=== PATIENT | female | born 1970 | race Caucasian/White ===

== ENCOUNTER 2020-12-18 22:46 | Inpatient (IN) | payer MEDICARE ==
[2020-12-19] MEDS ORDERED: Acetaminophen 650 MG Suppository PR PRN (01:04)
[2020-12-19] MEDS ORDERED: Ondansetron ODT 4 MG TAB PO PRN (01:04)
[2020-12-19] MEDS ORDERED: Acetaminophen 325 MG TAB ONE (01:43)
[2020-12-19] MEDS ORDERED: Lorazepam 1 MG TAB ONE (01:43)
[2020-12-19] MEDS: Acetaminophen 325 MG TAB PO PRN ×2 (01:55→20:16)
[2020-12-19] MEDS: Lorazepam 0.5 MG TAB PO PRN (01:56)
[2020-12-19 04:58] LABS: #Basophils 0.1 thou/uL (0.0-0.2); #Lymphocytes 1.3 thou/uL (1.20-3.40); #Monocytes 0.6 thou/uL (0.11-0.59); #Neutrophils 4.8 thou/uL (1.40-6.50); %Basophils 1.3 % (0.0-1.0); %Eosinophils 0.2 % (0.0-10.0); %Lymphocytes 18.7 % (21.0-51.0); %Monocytes 8.7 % (0.0-10.0); %Neutrophils 71.1 % (42.0-75.0); Hemoglobin 14.5 g/dL (12.0-16.0); Mean Corpuscular HGB CONC 32.5 g/dL (32.0-36.0); Mean Corpuscular Volume 92.3 fL (78.0-98.0); Mean Platelet Volume 7.9 fL (7.4-10.4); Platelet Count 186 thou/uL (130-400); RBC Distribution Width 12.5 % (11.5-14.5); Red Blood Cell (RBC) Count 4.85 mill/uL (4.20-5.40); White Blood Cell (WBC) Count 6.7 thou/uL (4.8-10.8)
[2020-12-19 05:21] LABS: Anion Gap 14 mmol/L (10-20); BUN (Urea Nitrogen) 6 mg/dL (7.0-18.7); CRP (Inflammatory) 6.54 mg/dL (= or < 0.5); Calc. Creatinine Clearance 128 mL/min (70-130); Calcium 8.3 mg/dL (7.8-10.44); Carbon Dioxide 18 mmol/L (22-29); Chloride 106 mmol/L (98-107); Glucose 97 mg/dL (70-105); Sodium 135 mmol/L (136-145)
[2020-12-19 05:23] LABS: Magnesium 1.9 mg/dL (1.6-2.6)
[2020-12-19 05:26] LABS: Potassium 2.7 mmol/L (3.5-5.1)
[2020-12-19] MEDS: Potassium Chloride 20 MEQ TAB PO SCH ×2 (05:44→11:22)
[2020-12-19] MEDS ORDERED: Potassium Chloride 20 MEQ TAB ONE ×2 (05:45→09:43)
[2020-12-19] MEDS ORDERED: Sodium Chloride 0.9% 1,000 ML IV SCH (05:45)
[2020-12-19] MEDS: Ondansetron PF 4 MG/2 ML Vial IVP PRN ×2 (05:52→10:47)
[2020-12-19] MEDS ORDERED: Ondansetron PF 4 MG/2 ML Vial ONE ×2 (05:52→10:36)
[2020-12-19] MEDS ORDERED: Iopamidol-370 76% 500 ML 1 ML ONE (09:27)
[2020-12-19] MEDS ORDERED: Dexamethasone 10 MG/ML VIAL ONE (09:43)
[2020-12-19] MEDS ORDERED: Enoxaparin Sodium 40 MG/0.4 ML SYRINGE ONE (09:43)
[2020-12-19] MEDS: Enoxaparin Sodium 40 MG/0.4 ML SYRINGE SC SCH ×2 (10:04→20:17)
[2020-12-19] MEDS: Dexamethasone 4 mg/ml Vial SLOW IVP SCH (10:04)
[2020-12-19] MEDS ORDERED: Thiamine 100 MG TAB ONE (10:30)
[2020-12-19] MEDS ORDERED: Zinc Sulfate 220 MG CAP ONE (10:36)
[2020-12-19] MEDS ORDERED: Ascorbic Acid 500 mg Chewable Tablet ONE (10:36)
[2020-12-19 11:05] LABS: Anion Gap 13 mmol/L (10-20); BUN (Urea Nitrogen) 7 mg/dL (7.0-18.7); Calc. Creatinine Clearance 134 mL/min (70-130); Carbon Dioxide 21 mmol/L (22-29); Chloride 106 mmol/L (98-107); Sodium 137 mmol/L (136-145)
[2020-12-19 11:06] LABS: Calcium 8.9 mg/dL (7.8-10.44); Glucose 115 mg/dL (70-105)
[2020-12-19] MEDS: Cholecalciferol (Vitamin D3) 400 UNITS TAB PO SCH (11:21)
[2020-12-19] MEDS: Ascorbic Acid 500 mg Chewable Tablet PO SCH (11:21)
[2020-12-19] MEDS: guaiFENesin ER 600 MG TAB PO SCH ×2 (11:22→20:15)
[2020-12-19] MEDS: Zinc Sulfate 220 MG CAP PO SCH (11:22)
[2020-12-19] MEDS: Thiamine 100 MG TAB PO SCH (11:22)
[2020-12-19 15:53] VITALS: BMI 37.9
[2020-12-20] MEDS ORDERED: Sodium Chloride 0.65% Nasal 44 ML BOT EA NARE PRN (00:11)
[2020-12-20] MEDS: HYDROcodone/Acetaminophen 5/325 mg Tablet PO PRN ×2 (00:44→08:05)
[2020-12-20] MEDS: Benzonatate 100 MG CAP PO PRN (00:45)
[2020-12-20] MEDS ORDERED: Albuterol 200 PUFF (6.7GM INHALER) INH PRN (01:15)
[2020-12-20] MEDS: Enoxaparin Sodium 40 MG/0.4 ML SYRINGE SC SCH ×2 (08:03→22:27)
[2020-12-20] MEDS: Zinc Sulfate 220 MG CAP PO SCH (08:03)
[2020-12-20] MEDS: Ascorbic Acid 500 mg Chewable Tablet PO SCH (08:03)
[2020-12-20] MEDS: Thiamine 100 MG TAB PO SCH (08:03)
[2020-12-20] MEDS: Dexamethasone 4 mg/ml Vial SLOW IVP SCH (08:04)
[2020-12-20] MEDS: guaiFENesin ER 600 MG TAB PO SCH ×2 (08:04→20:07)
[2020-12-20] MEDS: Cholecalciferol (Vitamin D3) 400 UNITS TAB PO SCH (08:04)
[2020-12-20] MEDS: Lorazepam 0.5 MG TAB PO PRN (08:14)
[2020-12-20] MEDS ORDERED: Potassium Chloride 20 MEQ TAB PO SCH (10:00)
[2020-12-20] MEDS ORDERED: SUMAtriptan Succinate 50 MG TAB PO SCH (11:00)
[2020-12-20] MEDS ORDERED: Propranolol 10 MG TAB PO SCH (11:00)
[2020-12-20] MEDS ORDERED: Topiramate 100 MG TAB PO SCH (11:00)
[2020-12-20] MEDS ORDERED: Venlafaxine HCl XR 150 MG CAP PO SCH (11:00)
[2020-12-20] MEDS ORDERED: Mirtazapine 15 MG TAB PO SCH (11:00)
[2020-12-20] MEDS: traZODone HCl 50 MG TAB PO SCH (20:08)
[2020-12-20] MEDS: Topiramate 100 MG TAB PO SCH (20:08)
[2020-12-20] MEDS: Propranolol 10 MG TAB PO SCH (20:08)
[2020-12-20] MEDS: Colchicine 0.6 MG TAB PO SCH (20:08)
[2020-12-20] MEDS: SUMAtriptan Succinate 50 MG TAB PO SCH (20:09)
[2020-12-20] MEDS: Zolpidem Tartrate 5 MG TAB PO SCH ×3 (20:11→20:13)
[2020-12-21 04:41] LABS: #Lymphocytes 1.2 thou/uL (1.20-3.40); #Monocytes 0.4 thou/uL (0.11-0.59); #Neutrophils 5.1 thou/uL (1.40-6.50); %Basophils 0.5 % (0.0-1.0); %Eosinophils 0.2 % (0.0-10.0); %Lymphocytes 18.4 % (21.0-51.0); %Monocytes 5.9 % (0.0-10.0); %Neutrophils 75.1 % (42.0-75.0); Hemoglobin 12.8 g/dL (12.0-16.0); Mean Corpuscular HGB CONC 33.7 g/dL (32.0-36.0); Mean Corpuscular Hemoglobin 31.2 pg (27.0-31.0); Mean Corpuscular Volume 92.4 fL (78.0-98.0); Mean Platelet Volume 7.7 fL (7.4-10.4); Platelet Count 182 thou/uL (130-400); RBC Distribution Width 12.4 % (11.5-14.5); Red Blood Cell (RBC) Count 4.09 mill/uL (4.20-5.40); White Blood Cell (WBC) Count 6.7 thou/uL (4.8-10.8)
[2020-12-21 05:02] LABS: Anion Gap 10 mmol/L (10-20); BUN (Urea Nitrogen) 7 mg/dL (7.0-18.7); Calc. Creatinine Clearance 176 mL/min (70-130); Calcium 8.6 mg/dL (7.8-10.44); Carbon Dioxide 25 mmol/L (22-29); Chloride 101 mmol/L (98-107); Glucose 90 mg/dL (70-105); Sodium 133 mmol/L (136-145)
[2020-12-21] MEDS: HYDROcodone/Acetaminophen 5/325 mg Tablet PO PRN (05:19)
[2020-12-21 08:05] LABS: Magnesium 1.9 mg/dL (1.6-2.6)
[2020-12-21] MEDS: Ascorbic Acid 500 mg Chewable Tablet PO SCH (09:09)
[2020-12-21] MEDS: Dexamethasone 4 mg/ml Vial SLOW IVP SCH (09:10)
[2020-12-21] MEDS: Cholecalciferol (Vitamin D3) 400 UNITS TAB PO SCH (09:10)
[2020-12-21] MEDS: Colchicine 0.6 MG TAB PO SCH ×2 (09:10→21:58)
[2020-12-21] MEDS: guaiFENesin ER 600 MG TAB PO SCH ×2 (09:11→21:59)
[2020-12-21] MEDS: Enoxaparin Sodium 40 MG/0.4 ML SYRINGE SC SCH ×2 (09:11→21:59)
[2020-12-21] MEDS: Mirtazapine 15 MG TAB PO SCH (09:12)
[2020-12-21] MEDS: Propranolol 10 MG TAB PO SCH ×2 (09:13→21:59)
[2020-12-21] MEDS: Potassium Chloride 20 MEQ TAB PO SCH ×2 (09:13→17:30)
[2020-12-21] MEDS: Thiamine 100 MG TAB PO SCH (09:15)
[2020-12-21] MEDS ORDERED: Magnesium 2 GM/50 ML 2 GM in Premix Bag 1 BAG IVPB SCH (09:15)
[2020-12-21] MEDS: SUMAtriptan Succinate 50 MG TAB PO SCH ×2 (09:15→21:58)
[2020-12-21] MEDS: Topiramate 100 MG TAB PO SCH ×2 (09:16→21:59)
[2020-12-21] MEDS: Zinc Sulfate 220 MG CAP PO SCH (09:16)
[2020-12-21] MEDS: Venlafaxine HCl XR 150 MG CAP PO SCH (09:19)
[2020-12-21] MEDS: traZODone HCl 50 MG TAB PO SCH (21:57)
[2020-12-21] MEDS: Zolpidem Tartrate 5 MG TAB PO SCH (21:57)
[2020-12-21] MEDS: Benzonatate 100 MG CAP PO PRN (21:58)
[2020-12-22] MEDS: Enoxaparin Sodium 40 MG/0.4 ML SYRINGE SC SCH ×2 (08:33→19:45)
[2020-12-22] MEDS: SUMAtriptan Succinate 50 MG TAB PO SCH ×2 (08:33→19:46)
[2020-12-22] MEDS: Thiamine 100 MG TAB PO SCH (08:34)
[2020-12-22] MEDS: Topiramate 100 MG TAB PO SCH ×2 (08:34→19:46)
[2020-12-22] MEDS: Propranolol 10 MG TAB PO SCH ×2 (08:34→19:46)
[2020-12-22] MEDS: Ascorbic Acid 500 mg Chewable Tablet PO SCH (08:34)
[2020-12-22] MEDS: Mirtazapine 15 MG TAB PO SCH (08:34)
[2020-12-22] MEDS: Zinc Sulfate 220 MG CAP PO SCH (08:34)
[2020-12-22] MEDS: Cholecalciferol (Vitamin D3) 400 UNITS TAB PO SCH (08:34)
[2020-12-22] MEDS: Dexamethasone 4 mg/ml Vial SLOW IVP SCH (08:35)
[2020-12-22] MEDS: Venlafaxine HCl XR 150 MG CAP PO SCH (08:35)
[2020-12-22] MEDS: Colchicine 0.6 MG TAB PO SCH ×2 (08:35→19:46)
[2020-12-22] MEDS: guaiFENesin ER 600 MG TAB PO SCH ×2 (08:35→19:46)
[2020-12-22] MEDS ORDERED: Azithromycin 250 MG TAB PO SCH (09:15)
[2020-12-22] MEDS: cefTRIAXone\\ROCEPHIN 1 GM in Sodium Chloride 0.9% 100 ML IVPB SCH (09:53)
[2020-12-22 10:05] LABS: #Lymphocytes 1.1 thou/uL (1.20-3.40); #Monocytes 0.5 thou/uL (0.11-0.59); #Neutrophils 3.7 thou/uL (1.40-6.50); %Basophils 0.2 % (0.0-1.0); %Eosinophils 0.4 % (0.0-10.0); %Lymphocytes 21.3 % (21.0-51.0); %Monocytes 8.6 % (0.0-10.0); %Neutrophils 69.5 % (42.0-75.0); Hemoglobin 12.5 g/dL (12.0-16.0); Mean Corpuscular HGB CONC 32.8 g/dL (32.0-36.0); Mean Corpuscular Hemoglobin 31.1 pg (27.0-31.0); Mean Corpuscular Volume 94.8 fL (78.0-98.0); Mean Platelet Volume 7.9 fL (7.4-10.4); Platelet Count 266 thou/uL (130-400); RBC Distribution Width 12.4 % (11.5-14.5); Red Blood Cell (RBC) Count 4.03 mill/uL (4.20-5.40); White Blood Cell (WBC) Count 5.3 thou/uL (4.8-10.8)
[2020-12-22 10:14] LABS: Anion Gap 11 mmol/L (10-20); BUN (Urea Nitrogen) 13 mg/dL (7.0-18.7); Calc. Creatinine Clearance 156 mL/min (70-130); Calcium 8.7 mg/dL (7.8-10.44); Carbon Dioxide 27 mmol/L (22-29); Chloride 103 mmol/L (98-107); Glucose 96 mg/dL (70-105); Magnesium 2.4 mg/dL (1.6-2.6); Potassium 3.6 mmol/L (3.5-5.1); Sodium 137 mmol/L (136-145)
[2020-12-22] MEDS: Acetaminophen 325 MG TAB PO PRN (18:58)
[2020-12-22] MEDS: Zolpidem Tartrate 5 MG TAB PO SCH (19:45)
[2020-12-22] MEDS: traZODone HCl 50 MG TAB PO SCH (19:46)
[2020-12-23] MEDS: Enoxaparin Sodium 40 MG/0.4 ML SYRINGE SC SCH ×2 (07:50→22:08)
[2020-12-23] MEDS: Venlafaxine HCl XR 150 MG CAP PO SCH (07:51)
[2020-12-23] MEDS: Ascorbic Acid 500 mg Chewable Tablet PO SCH (07:51)
[2020-12-23] MEDS: guaiFENesin ER 600 MG TAB PO SCH ×2 (07:51→22:09)
[2020-12-23] MEDS: Propranolol 10 MG TAB PO SCH ×2 (07:51→22:08)
[2020-12-23] MEDS: Dexamethasone 4 mg/ml Vial SLOW IVP SCH (07:51)
[2020-12-23] MEDS: Zinc Sulfate 220 MG CAP PO SCH (07:51)
[2020-12-23] MEDS: Cholecalciferol (Vitamin D3) 400 UNITS TAB PO SCH (07:51)
[2020-12-23] MEDS: Colchicine 0.6 MG TAB PO SCH ×2 (07:52→22:16)
[2020-12-23] MEDS: Azithromycin 250 MG TAB PO SCH (07:52)
[2020-12-23] MEDS: SUMAtriptan Succinate 50 MG TAB PO SCH ×2 (07:52→22:15)
[2020-12-23] MEDS: Topiramate 100 MG TAB PO SCH ×2 (07:52→22:16)
[2020-12-23] MEDS: Mirtazapine 15 MG TAB PO SCH (07:52)
[2020-12-23] MEDS: Thiamine 100 MG TAB PO SCH (07:52)
[2020-12-23] MEDS: cefTRIAXone\\ROCEPHIN 1 GM in Sodium Chloride 0.9% 100 ML IVPB SCH (07:55)
[2020-12-23] MEDS: Benzonatate 100 MG CAP PO PRN ×2 (08:20→15:37)
[2020-12-23] MEDS: HYDROcodone/Acetaminophen 5/325 mg Tablet PO PRN (18:02)
[2020-12-23] MEDS: Zolpidem Tartrate 5 MG TAB PO SCH (22:08)
[2020-12-23] MEDS: traZODone HCl 50 MG TAB PO SCH (22:09)
[2020-12-24] MEDS: SUMAtriptan Succinate 50 MG TAB PO SCH ×2 (08:07→19:37)
[2020-12-24] MEDS: cefTRIAXone\\ROCEPHIN 1 GM in Sodium Chloride 0.9% 100 ML IVPB SCH (08:07)
[2020-12-24] MEDS: Venlafaxine HCl XR 150 MG CAP PO SCH (08:08)
[2020-12-24] MEDS: Benzonatate 100 MG CAP PO PRN ×2 (08:08→19:35)
[2020-12-24] MEDS: guaiFENesin ER 600 MG TAB PO SCH ×2 (08:08→19:36)
[2020-12-24] MEDS: Zinc Sulfate 220 MG CAP PO SCH (08:08)
[2020-12-24] MEDS: Mirtazapine 15 MG TAB PO SCH (08:08)
[2020-12-24] MEDS: Azithromycin 250 MG TAB PO SCH (08:08)
[2020-12-24] MEDS: Ascorbic Acid 500 mg Chewable Tablet PO SCH (08:08)
[2020-12-24] MEDS: Propranolol 10 MG TAB PO SCH ×2 (08:08→19:35)
[2020-12-24] MEDS: Thiamine 100 MG TAB PO SCH (08:09)
[2020-12-24] MEDS: Cholecalciferol (Vitamin D3) 400 UNITS TAB PO SCH (08:09)
[2020-12-24] MEDS: Topiramate 100 MG TAB PO SCH ×2 (08:09→19:36)
[2020-12-24] MEDS: Dexamethasone 4 mg/ml Vial SLOW IVP SCH (08:09)
[2020-12-24] MEDS: Enoxaparin Sodium 40 MG/0.4 ML SYRINGE SC SCH ×2 (08:09→19:35)
[2020-12-24] MEDS ORDERED: Dexamethasone 10 MG in Sodium Chloride 0.9% 50 ML IVPB SCH (17:00)
[2020-12-24] MEDS: Zolpidem Tartrate 5 MG TAB PO SCH (19:35)
[2020-12-24] MEDS: traZODone HCl 50 MG TAB PO SCH (19:35)
[2020-12-24] MEDS: Dexamethasone 10 MG/ML VIAL SLOW IVP SCH (19:36)
[2020-12-25 05:08] LABS: #Basophils 0.1 thou/uL (0.0-0.2); #Lymphocytes 0.7 thou/uL (1.20-3.40); #Monocytes 0.4 thou/uL (0.11-0.59); #Neutrophils 8.9 thou/uL (1.40-6.50); %Eosinophils 0.1 % (0.0-10.0); %Monocytes 3.8 % (0.0-10.0); %Neutrophils 88.1 % (42.0-75.0); Hemoglobin 12.2 g/dL (12.0-16.0); Mean Corpuscular HGB CONC 33.3 g/dL (32.0-36.0); Mean Corpuscular Volume 93.4 fL (78.0-98.0); Mean Platelet Volume 7.1 fL (7.4-10.4); Platelet Count 420 thou/uL (130-400); RBC Distribution Width 12.1 % (11.5-14.5); Red Blood Cell (RBC) Count 3.93 mill/uL (4.20-5.40); White Blood Cell (WBC) Count 10.1 thou/uL (4.8-10.8)
[2020-12-25] MEDS: Benzonatate 100 MG CAP PO PRN ×3 (05:25→20:18)
[2020-12-25 05:35] LABS: Anion Gap 12 mmol/L (10-20); BUN (Urea Nitrogen) 10 mg/dL (7.0-18.7); Calc. Creatinine Clearance 173 mL/min (70-130); Calcium 9.2 mg/dL (7.8-10.44); Carbon Dioxide 21 mmol/L (22-29); Chloride 105 mmol/L (98-107); Glucose 142 mg/dL (70-105); Potassium 3.9 mmol/L (3.5-5.1); Sodium 134 mmol/L (136-145)
[2020-12-25] MEDS: SUMAtriptan Succinate 50 MG TAB PO SCH ×2 (08:40→20:03)
[2020-12-25] MEDS: Ascorbic Acid 500 mg Chewable Tablet PO SCH (08:40)
[2020-12-25] MEDS: Venlafaxine HCl XR 150 MG CAP PO SCH (08:40)
[2020-12-25] MEDS: Cholecalciferol (Vitamin D3) 400 UNITS TAB PO SCH (08:40)
[2020-12-25] MEDS: Zinc Sulfate 220 MG CAP PO SCH (08:40)
[2020-12-25] MEDS: Thiamine 100 MG TAB PO SCH (08:41)
[2020-12-25] MEDS: Mirtazapine 15 MG TAB PO SCH (08:41)
[2020-12-25] MEDS: Topiramate 100 MG TAB PO SCH ×2 (08:41→20:03)
[2020-12-25] MEDS: Enoxaparin Sodium 40 MG/0.4 ML SYRINGE SC SCH ×2 (08:41→20:03)
[2020-12-25] MEDS: Propranolol 10 MG TAB PO SCH ×2 (08:41→20:03)
[2020-12-25] MEDS: guaiFENesin ER 600 MG TAB PO SCH ×2 (08:41→20:04)
[2020-12-25] MEDS: Azithromycin 250 MG TAB PO SCH (08:41)
[2020-12-25] MEDS: cefTRIAXone\\ROCEPHIN 1 GM in Sodium Chloride 0.9% 100 ML IVPB SCH (08:42)
[2020-12-25] MEDS ORDERED: rOPINIRole HCl 0.5 MG TAB PO PRN (17:14)
[2020-12-25] MEDS: Dexamethasone 10 MG/ML VIAL SLOW IVP SCH (20:02)
[2020-12-25] MEDS: Zolpidem Tartrate 5 MG TAB PO SCH (20:04)
[2020-12-25] MEDS: traZODone HCl 50 MG TAB PO SCH (20:04)
[2020-12-25] MEDS ORDERED: Baclofen 10 MG TAB PO SCH (23:15)
[2020-12-26] MEDS ORDERED: Melatonin 3 MG TAB PO PRN (00:18)
[2020-12-26 05:23] LABS: #Lymphocytes 0.8 thou/uL (1.20-3.40); #Monocytes 0.4 thou/uL (0.11-0.59); #Neutrophils 6.4 thou/uL (1.40-6.50); %Basophils 0.4 % (0.0-1.0); %Eosinophils 0.1 % (0.0-10.0); %Lymphocytes 10.4 % (21.0-51.0); %Monocytes 5.5 % (0.0-10.0); %Neutrophils 83.7 % (42.0-75.0); Hemoglobin 12.3 g/dL (12.0-16.0); Mean Corpuscular HGB CONC 33.6 g/dL (32.0-36.0); Mean Corpuscular Hemoglobin 31.4 pg (27.0-31.0); Mean Corpuscular Volume 93.4 fL (78.0-98.0); Mean Platelet Volume 7.3 fL (7.4-10.4); Platelet Count 496 thou/uL (130-400); RBC Distribution Width 12.3 % (11.5-14.5); Red Blood Cell (RBC) Count 3.91 mill/uL (4.20-5.40); White Blood Cell (WBC) Count 7.6 thou/uL (4.8-10.8)
[2020-12-26 05:45] LABS: ALT (SGPT) 121 U/L (8-55); AST (SGOT) 42 U/L (5-34); Albumin 3.1 g/dL (3.5-5.0); Alkaline Phosphatase 93 U/L (40-110); Anion Gap 12 mmol/L (10-20); BUN (Urea Nitrogen) 14 mg/dL (7.0-18.7); Bilirubin, Total 0.3 mg/dL (0.2-1.2); Calc. Creatinine Clearance 169 mL/min (70-130); Calcium 9.2 mg/dL (7.8-10.44); Carbon Dioxide 21 mmol/L (22-29); Chloride 106 mmol/L (98-107); Globulin 3.1 g/dL (2.4-3.5); Glucose 129 mg/dL (70-105); Magnesium 1.9 mg/dL (1.6-2.6); Protein, Total 6.2 g/dL (6.0-8.3); Sodium 135 mmol/L (136-145)
[2020-12-26] MEDS: cefTRIAXone\\ROCEPHIN 1 GM in Sodium Chloride 0.9% 100 ML IVPB SCH (07:49)
[2020-12-26] MEDS: Cholecalciferol (Vitamin D3) 400 UNITS TAB PO SCH (07:50)
[2020-12-26] MEDS: SUMAtriptan Succinate 50 MG TAB PO SCH ×2 (07:50→20:25)
[2020-12-26] MEDS: Baclofen 10 MG TAB PO SCH ×2 (07:50→20:24)
[2020-12-26] MEDS: Thiamine 100 MG TAB PO SCH (07:51)
[2020-12-26] MEDS: guaiFENesin ER 600 MG TAB PO SCH ×2 (07:51→20:24)
[2020-12-26] MEDS: Mirtazapine 15 MG TAB PO SCH (07:51)
[2020-12-26] MEDS: Ascorbic Acid 500 mg Chewable Tablet PO SCH (07:51)
[2020-12-26] MEDS: Venlafaxine HCl XR 150 MG CAP PO SCH (07:51)
[2020-12-26] MEDS: Benzonatate 100 MG CAP PO PRN (07:51)
[2020-12-26] MEDS: Zinc Sulfate 220 MG CAP PO SCH (07:51)
[2020-12-26] MEDS: Propranolol 10 MG TAB PO SCH ×2 (07:51→20:24)
[2020-12-26] MEDS: Topiramate 100 MG TAB PO SCH ×2 (07:52→20:24)
[2020-12-26] MEDS: Enoxaparin Sodium 40 MG/0.4 ML SYRINGE SC SCH ×2 (07:52→20:23)
[2020-12-26] MEDS: Azithromycin 250 MG TAB PO SCH (07:52)
[2020-12-26] MEDS: HYDROcodone/Acetaminophen 5/325 mg Tablet PO PRN ×3 (11:58→22:25)
[2020-12-26] MEDS: traZODone HCl 50 MG TAB PO SCH (20:24)
[2020-12-26] MEDS: Dexamethasone 10 MG/ML VIAL SLOW IVP SCH (20:24)
[2020-12-26] MEDS: Zolpidem Tartrate 5 MG TAB PO SCH (20:25)
[2020-12-26] MEDS: Lorazepam 0.5 MG TAB PO PRN (22:25)
[2020-12-27 05:53] LABS: Anion Gap 9 mmol/L (10-20); BUN (Urea Nitrogen) 17 mg/dL (7.0-18.7); CRP (Inflammatory) 1.27 mg/dL (= or < 0.5); Calc. Creatinine Clearance 174 mL/min (70-130); Calcium 9.1 mg/dL (7.8-10.44); Carbon Dioxide 26 mmol/L (22-29); Chloride 104 mmol/L (98-107); Glucose 115 mg/dL (70-105); Potassium 4.3 mmol/L (3.5-5.1); Sodium 135 mmol/L (136-145)
[2020-12-27] MEDS: Mirtazapine 15 MG TAB PO SCH (08:23)
[2020-12-27] MEDS: Zinc Sulfate 220 MG CAP PO SCH (08:23)
[2020-12-27] MEDS: Propranolol 10 MG TAB PO SCH ×2 (08:23→20:24)
[2020-12-27] MEDS: SUMAtriptan Succinate 50 MG TAB PO SCH ×2 (08:23→20:24)
[2020-12-27] MEDS: Cholecalciferol (Vitamin D3) 400 UNITS TAB PO SCH (08:23)
[2020-12-27] MEDS: Baclofen 10 MG TAB PO SCH ×2 (08:24→20:23)
[2020-12-27] MEDS: guaiFENesin ER 600 MG TAB PO SCH ×2 (08:24→20:25)
[2020-12-27] MEDS: Ascorbic Acid 500 mg Chewable Tablet PO SCH (08:24)
[2020-12-27] MEDS: Venlafaxine HCl XR 150 MG CAP PO SCH (08:24)
[2020-12-27] MEDS: Enoxaparin Sodium 40 MG/0.4 ML SYRINGE SC SCH ×2 (08:26→20:23)
[2020-12-27] MEDS: Topiramate 100 MG TAB PO SCH ×2 (08:26→20:26)
[2020-12-27] MEDS: Thiamine 100 MG TAB PO SCH (08:26)
[2020-12-27] MEDS: cefTRIAXone\\ROCEPHIN 1 GM in Sodium Chloride 0.9% 100 ML IVPB SCH (08:27)
[2020-12-27] MEDS: Dexamethasone 10 MG/ML VIAL SLOW IVP SCH (20:23)
[2020-12-27] MEDS: Zolpidem Tartrate 5 MG TAB PO SCH (20:25)
[2020-12-27] MEDS: traZODone HCl 50 MG TAB PO SCH (20:25)
[2020-12-27] MEDS: Acetaminophen 325 MG TAB PO PRN (20:26)
[2020-12-28] MEDS: HYDROcodone/Acetaminophen 5/325 mg Tablet PO PRN ×3 (00:27→20:52)
[2020-12-28 05:49] LABS: ALT (SGPT) 149 U/L (8-55); AST (SGOT) 40 U/L (5-34); Albumin 3.2 g/dL (3.5-5.0); Alkaline Phosphatase 93 U/L (40-110); Anion Gap 12 mmol/L (10-20); BUN (Urea Nitrogen) 13 mg/dL (7.0-18.7); Bilirubin, Total 0.2 mg/dL (0.2-1.2); Calc. Creatinine Clearance 162 mL/min (70-130); Carbon Dioxide 24 mmol/L (22-29); Chloride 104 mmol/L (98-107); Glucose 131 mg/dL (70-105); Potassium 4.2 mmol/L (3.5-5.1); Protein, Total 6.2 g/dL (6.0-8.3); Sodium 136 mmol/L (136-145)
[2020-12-28] MEDS: guaiFENesin ER 600 MG TAB PO SCH ×2 (09:11→20:53)
[2020-12-28] MEDS: SUMAtriptan Succinate 50 MG TAB PO SCH ×2 (09:11→20:53)
[2020-12-28] MEDS: Zinc Sulfate 220 MG CAP PO SCH (09:11)
[2020-12-28] MEDS: Cholecalciferol (Vitamin D3) 400 UNITS TAB PO SCH (09:11)
[2020-12-28] MEDS: Topiramate 100 MG TAB PO SCH ×2 (09:11→20:53)
[2020-12-28] MEDS: Thiamine 100 MG TAB PO SCH (09:11)
[2020-12-28] MEDS: Baclofen 10 MG TAB PO SCH ×2 (09:11→20:53)
[2020-12-28] MEDS: Propranolol 10 MG TAB PO SCH ×2 (09:11→20:53)
[2020-12-28] MEDS: Mirtazapine 15 MG TAB PO SCH (09:12)
[2020-12-28] MEDS: Ascorbic Acid 500 mg Chewable Tablet PO SCH (09:12)
[2020-12-28] MEDS: Enoxaparin Sodium 40 MG/0.4 ML SYRINGE SC SCH ×2 (09:12→20:52)
[2020-12-28] MEDS: cefTRIAXone\\ROCEPHIN 1 GM in Sodium Chloride 0.9% 100 ML IVPB SCH (09:12)
[2020-12-28] MEDS: Venlafaxine HCl XR 150 MG CAP PO SCH (09:12)
[2020-12-28] MEDS: traZODone HCl 50 MG TAB PO SCH (20:52)
[2020-12-28] MEDS: Zolpidem Tartrate 5 MG TAB PO SCH (20:53)
[2020-12-28] MEDS: Dexamethasone 10 MG/ML VIAL SLOW IVP SCH (20:54)
[2020-12-29] MEDS: (Cariprazine Hcl [Vraylar] 3 MG Capsule) PO SCH ×2 (01:20→07:47)
[2020-12-29] MEDS: HYDROcodone/Acetaminophen 5/325 mg Tablet PO PRN ×3 (01:47→18:31)
[2020-12-29] MEDS: Enoxaparin Sodium 40 MG/0.4 ML SYRINGE SC SCH (07:47)
[2020-12-29] MEDS: Propranolol 10 MG TAB PO SCH (07:47)
[2020-12-29] MEDS: Ascorbic Acid 500 mg Chewable Tablet PO SCH (07:48)
[2020-12-29] MEDS: SUMAtriptan Succinate 50 MG TAB PO SCH (07:48)
[2020-12-29] MEDS: Cholecalciferol (Vitamin D3) 400 UNITS TAB PO SCH (07:48)
[2020-12-29] MEDS: Zinc Sulfate 220 MG CAP PO SCH (07:48)
[2020-12-29] MEDS: Topiramate 100 MG TAB PO SCH (07:48)
[2020-12-29] MEDS: guaiFENesin ER 600 MG TAB PO SCH (07:49)
[2020-12-29] MEDS: Venlafaxine HCl XR 150 MG CAP PO SCH (07:49)
[2020-12-29] MEDS: Mirtazapine 15 MG TAB PO SCH (07:49)
[2020-12-29] MEDS: Thiamine 100 MG TAB PO SCH (07:49)
[2020-12-29] MEDS: Baclofen 10 MG TAB PO SCH (07:49)
[2020-12-29 17:15] VITALS: BP 100/55; TEMP 97.5
== END 2020-12-29 19:40 | disposition home or self-care (01) | DRG 177 ==
LOC: ERS 22:46 → ERHOLD 12-19 00:08 → 2SW 12-19 15:09
PROVIDERS: ADMIT Student in an Organized Health Care Education/Training Program; ATTEND Family Medicine
PROC: 8E0ZXY6 Isolation (ICD-10-PCS; principal; 2020-12-19)
PROC: XW033H5 Introduction of Tocilizumab into Peripheral Vein, Percutaneous Approach, New Technology Group 5 (ICD-10-PCS; 2020-12-25)
DX: U07.1 COVID-19 (principal); J12.82 Pneumonia due to coronavirus disease 2019; J96.01 Acute respiratory failure with hypoxia; E87.6 Hypokalemia; E66.9 Obesity, unspecified; R19.7 Diarrhea, unspecified; F31.9 Bipolar disorder, unspecified; F41.9 Anxiety disorder, unspecified; R74.01 Elevation of levels of liver transaminase levels; Z90.710 Acquired absence of both cervix and uterus; Z90.49 Acquired absence of other specified parts of digestive tract; Z68.38 Body mass index [BMI] 38.0-38.9, adult; Z79.899 Other long term (current) drug therapy
CPT/HCPCS: 36415; 71275; 80048; 80053; 82728; 83735; 85025; 85379; 86140; J0696; J1100; J1650; J2405; J3262; J3475; J3490; Q9967